=== PATIENT | female | born 1995 | race Caucasian/White ===

== ENCOUNTER 2019-05-30 08:14 | Emergency (ER) | payer MEDICAID ==
[~2019-05-30] VITALS: Ht 165.1 cm; Wt 79.0 kg
[2019-05-30] MEDS ORDERED: MORPHINE SULFATE 4 MG/ML CPJ (NOT FOR IM USE) IV ONE ×2 (09:00→11:30)
[2019-05-30] MEDS ORDERED: ONDANSETRON HCL 4MG/2ML INJ IV ONE (09:00)
[2019-05-30 09:22] LABS: BASOPHILS % 0.5 % (0.0-2.0); EOSINOPHILS % 0.2 % (0.0-5.0); HEMATOCRIT. 40.3 % (36.0-48.0); LYMPHOCYTES % 27.2 % (20.0-50.0); MONOCYTES % 8.3 % (2.0-8.0); NEUTROPHILS % 63.8 % (40.0-76.0); PLATELET 247 x1000/uL (130-400); RED BLOOD CELL COUNT 4.38 mill/uL (4.2-5.4); RED CELL DISTRIBUTION WIDTH 13.4 % (11.6-14.6)
[2019-05-30 09:23] LABS: CLARITY URINE CLEAR (CLEAR); COLOR URINE YELLOW (YELLOW); KETONES URINE NEGATIVE (NEGATIVE); LEUKOCYTE ESTERASE URINE TRACE (NEGATIVE); NITRITE URINE NEGATIVE (NEGATIVE); OCCULT BLOOD URINE NEGATIVE (NEGATIVE); PROTEIN URINE NEGATIVE (NEGATIVE); SPECIFIC GRAVITY URINE 1.007 (1.005-1.030); UROBILINOGEN URINE 0.2 E.U./dL (0.2-1.0)
[2019-05-30 09:32] LABS: CHLORIDE 109 mEq/L (98-107)
[2019-05-30 14:16] VITALS: BP 108/64
== END 2019-05-30 14:17 | disposition home or self-care (01) ==
LOC: ER 08:14
DX: R10.13 Epigastric pain (principal); R11.2 Nausea with vomiting, unspecified
CPT/HCPCS: 36415; 74176; 76705; 80053; 81003; 81025; 83690; 85025; 85610; 96374; 96375; 96376; 99285; J2270; J2405

== ENCOUNTER 2023-06-16 16:37 | Inpatient (IN) | payer SELFPAY ==
[~2023-06-16] VITALS: Ht 162.6 cm; Wt 81.6 kg
[2023-06-16 16:40] VITALS: O2SAT 100
[2023-06-16] MEDS: LEVETIRACETAM 1000MG PREMIX 100 ML IV ONE (17:23)
[2023-06-16] MEDS: ONDANSETRON HCL 4MG/2ML INJ IV NR (17:23)
[2023-06-16 17:31] LABS: BASOPHILS % 0.3 % (0.0-2.0); EOSINOPHILS % 0.2 % (0.0-5.0); HEMATOCRIT. 40.3 % (36.0-48.0); HEMOGLOBIN. 13.1 g/dL (12.0-16.0); LYMPHOCYTES % 14.8 % (20.0-50.0); MEAN CORPUSCULAR HEMOGLOBIN 29.6 pg (28.0-32.0); MEAN CORPUSCULAR HGB CONC 32.6 g/dL (31.0-37.0); MEAN CORPUSCULAR VOLUME 90.7 fL (81.0-99.0); MEAN PLATELET VOLUME 8.6 fl (7.4-10.4); MONOCYTES % 5.9 % (2.0-8.0); NEUTROPHILS % 78.8 % (40.0-76.0); PLATELET 335 x1000/uL (130-400); RED BLOOD CELL COUNT 4.44 mill/uL (4.2-5.4); RED CELL DISTRIBUTION WIDTH 14.1 % (11.6-14.6); WHITE BLOOD COUNT 18.2 x1000/uL (4.5-11.0)
[2023-06-16 17:47] LABS: ALANINE AMINOTRANSFERASE 21 IU/L (10-49); ALBUMIN 5.1 g/dL (3.2-4.8); ASPARTATE AMINOTRANSFERASE 18 IU/L (<34); BILIRUBIN TOTAL 0.7 mg/dL (0.1-1.0); CARBON DIOXIDE 16 mEq/L (21-32); CHLORIDE 106 mEq/L (98-107); CREATININE 0.6 mg/dL (0.6-1.0); ETHANOL BLOOD 105 mg/dL (<10); GLUCOSE 109 mg/dL (70-105); POTASSIUM 3.5 mEq/L (3.5-5.1); PROTEIN TOTAL 8.5 g/dL (6.0-8.3); SODIUM 136 mEq/L (136-145)
[2023-06-16 18:03] LABS: UREA NITROGEN BLOOD < 5 mg/dL (9-23)
[2023-06-16] MEDS: MORPHINE SULFATE 4 MG/ML INJ (FOR IV/IM USE) IV ONE (18:09)
[2023-06-16 19:18] LABS: CLARITY URINE CLEAR (CLEAR); COLOR URINE YELLOW (YELLOW); GLUCOSE URINE NEGATIVE (NEGATIVE); KETONES URINE 2+ (NEGATIVE); LEUKOCYTE ESTERASE URINE NEGATIVE (NEGATIVE); NITRITE URINE NEGATIVE (NEGATIVE); OCCULT BLOOD URINE 1+ (NEGATIVE); PH URINE 5.5 (4.5-8.0); PROTEIN URINE NEGATIVE (NEGATIVE); SPECIFIC GRAVITY URINE 1.014 (1.005-1.030); UROBILINOGEN URINE 0.2 E.U./dL (0.2-1.0)
[2023-06-16 19:34] LABS: *AMPHETAMINES SCREEN URINE PRESUMPTIVE POSITIVE (NEGATIVE); *BARBITURATES SCREEN URINE NEGATIVE (NEGATIVE); *BENZODIAZEPINES SCREEN URINE NEGATIVE (NEGATIVE); *COCAINE SCREEN URINE PRESUMPTIVE POSITIVE (NEGATIVE); CANNABINOID URINE SCREEN NEGATIVE (NEGATIVE); ECSTASY MDMA SCREEN URINE NEGATIVE (NEGATIVE); METHADONE URINE SCREEN Neg (NEGATIVE); OPIATES URINE SCREEN NEGATIVE (NEGATIVE); PHENCYCLIDINE URINE SCREEN NEGATIVE (NEGATIVE)
[2023-06-16 19:35] LABS: BACTERIA URINE 1+; SQUAMOUS EPITHELIAL CELL URINE 1+ /lpf (RARE/1+); WBC URINE 0-2 /hpf (0-2)
[2023-06-16 19:39] LABS: HCG SCREEN NEGATIVE
[2023-06-16] MEDS: KETOROLAC 15MG/ML VIAL IV ONE (19:54)
[2023-06-16] MEDS: METOCLOPRAMIDE HCL 10MG/2ML VIAL IV ONE (19:54)
[2023-06-16] MEDS: SODIUM CHLORIDE 0.9% 1,000 ML IV ONE (19:55)
[2023-06-16 21:45] VITALS: BP 97/60; PULSE 103; RESP 20; TEMP 98.2
[2023-06-16] MEDS ORDERED: IPRATROPIUM/ALBUTEROL 0.5-3(2.5)MG/3ML NEB NEB PRN (23:45)
[2023-06-16] MEDS ORDERED: DOCUSATE SODIUM 100MG CAPSULE PO PRN (23:45)
[2023-06-16] MEDS ORDERED: MAGNESIUM/ALUMINUM HYDROXIDE/SIMETHICONE 30ML UDC PO PRN (23:45)
[2023-06-16] MEDS ORDERED: ONDANSETRON HCL 4MG/2ML INJ IV PRN (23:45)
[2023-06-16] MEDS ORDERED: DIPHENHYDRAMINE 50MG/ML VIAL IV PRN (23:45)
[2023-06-16] MEDS ORDERED: CLONIDINE 0.1MG TABLET PO PRN (23:45)
[2023-06-16] MEDS ORDERED: NA PHOS,M-B/NA PHOS,DI-BA ENEMA 118ML PR PRN (23:45)
[2023-06-16] MEDS ORDERED: LORAZEPAM 2MG/ML INJ IV PRN (23:45)
[2023-06-16] MEDS: SODIUM CHLORIDE 0.45% 1,000 ML IV SCH (23:45)
[2023-06-16] MEDS ORDERED: GUAIFENESIN 200MG/10ML SUGAR FREE UDC PO PRN (23:45)
[2023-06-17] VITALS: BP 103/65; PULSE 80; RESP 18; TEMP 97.9
[2023-06-17 04:00] VITALS: BP 105/65; PULSE 88; RESP 18; TEMP 97.5
[2023-06-17 06:27] LABS: ALANINE AMINOTRANSFERASE 16 IU/L (10-49); ALBUMIN 4.1 g/dL (3.2-4.8); ASPARTATE AMINOTRANSFERASE 15 IU/L (<34); BILIRUBIN TOTAL 1.8 mg/dL (0.1-1.0); CALCIUM 8.4 mg/dL (8.7-10.4); CARBON DIOXIDE 23 mEq/L (21-32); CHLORIDE 108 mEq/L (98-107); CREATININE 0.7 mg/dL (0.6-1.0); GLUCOSE 106 mg/dL (70-105); POTASSIUM 3.5 mEq/L (3.5-5.1); PROTEIN TOTAL 6.8 g/dL (6.0-8.3); SODIUM 138 mEq/L (136-145); UREA NITROGEN BLOOD 8 mg/dL (9-23)
[2023-06-17 08:00] VITALS: BP 120/70; PULSE 101; RESP 14; TEMP 98.2
[2023-06-17] MEDS: LEVOFLOXACIN 500MG PREMIX 100 ML IV SCH (08:23)
[2023-06-17] MEDS: ACETAMINOPHEN 325MG TABLET PO PRN (08:49)
[2023-06-17] MEDS: LEVETIRACETAM 500MG/5ML CUP PO SCH (08:49)
[2023-06-17 12:00] VITALS: BP 110/70; PULSE 74; RESP 16; TEMP 97.9
[2023-06-17] MEDS ORDERED: MULTIVITAMINS,THER W-MINERALS TABLET PO SCH (12:45)
[2023-06-17] MEDS ORDERED: LORAZEPAM 1MG TABLET PO PRN (12:45)
[2023-06-17] MEDS ORDERED: THIAMINE HCL 100 MG/1 ML 2ML VIAL IM SCH (12:45)
[2023-06-17] MEDS ORDERED: PHENOBARBITAL 30 MG TABLET PO PRN (12:45)
[2023-06-17] MEDS ORDERED: FOLIC ACID 1MG TABLET PO SCH (12:45)
[2023-06-17] MEDS ORDERED: CHLORDIAZEPOXIDE 25MG CAPSULE PO SCH (14:00)
[2023-06-17] MEDS ORDERED: FOLIC ACID 1 MG, THIAMINE HCL 100 MG, MVI, ADULT NO.1 10 ML in DEXTROSE 5% WATER 1,000 ML IV ONE (14:30)
[2023-06-17] MEDS ORDERED: PNEUMOCOCCAL 23-VAL P-SAC VAC 0.5 ML IM ONE (21:00)
[2023-06-18] MEDS ORDERED: LEVOFLOXACIN 750MG PREMIX 150 ML IV SCH (08:00)
[2023-06-20] MEDS ORDERED: THIAMINE HCL 100MG TABLET PO SCH (09:00)
== END 2023-06-17 12:50 | disposition left against medical advice (07) | DRG 53 ==
LOC: ER 16:37 → 7WST 18:38 → EDBEDREQ 18:39 → EDBEDREQTM 18:39 → EDBEDREQSVC 18:39
PROVIDERS: ADMIT Internal Medicine; ATTEND Internal Medicine
DX: G40.409 Other generalized epilepsy and epileptic syndromes, not intractable, without status epilepticus (principal); D72.829 Elevated white blood cell count, unspecified; E11.9 Type 2 diabetes mellitus without complications; F14.10 Cocaine abuse, uncomplicated; I10 Essential (primary) hypertension; Z53.29 Procedure and treatment not carried out because of patient's decision for other reasons; Z91.148 Patient's other noncompliance with medication regimen for other reason
CPT/HCPCS: 36415; 80048; 80053; 80305; 80320; 81003; 84145; 84703; 85025; 90732; 99291; C1893; J1885; J1953; J1956; J2270; J2405; J2765; J3411; J3490; J7030; J7070; G0480